=== PATIENT | female | born 1985 | race Caucasian/White ===

== ENCOUNTER 2017-12-02 12:11 | Emergency (ER) | payer MEDICAID ==
[~2017-12-02] VITALS: Ht 167.6 cm; Wt 59.0 kg
[2017-12-02] MEDS ORDERED: IBUPROFEN 600 MG TABLET PO ONE ×2 (12:46→13:00)
[2017-12-02 12:56] LABS: BASOPHILS % (AUTO) 0.3 % (0.0-2.0); EOSINOPHILS % (AUTO) 0.9 % (0.0-6.0); HEMATOCRIT 44 % (33-45); HEMOGLOBIN 14.9 g/dL (11.5-14.8); LYMPHOCYTES # (AUTO) 0.9 /CMM (0.8-4.8); LYMPHOCYTES % (AUTO) 9.9 % (20.0-44.0); MEAN CORPUSCULAR HGB CONC 34 g/dl (31.0-36.0); MEAN CORPUSCULAR VOLUME 95 fL (82-100); MONOCYTES # (AUTO) 0.6 /CMM (0.1-1.30); MONOCYTES % (AUTO) 6.4 % (2.0-12.0); NEUTROPHILS # (AUTO) 7.4 /CMM (1.8-8.9); NEUTROPHILS % (AUTO) 82.5 % (43.0-81.0); PLATELET COUNT (AUTO) 339 /CMM (150-450); RDW COEFFICIENT OF VARIATION 13.2 (11.5-15.0)
[2017-12-02 13:07] LABS: CALCIUM, SERUM 9.1 mg/dL (8.5-10.1); CREATININE 0.9 mg/dL (0.6-1.3); POTASSIUM 4.4 mmol/L (3.5-5.1)
[2017-12-02 13:13] LABS: ALBUMIN 3.6 g/dL (3.4-5.0); BILIRUBIN,DIRECT 0.1 mg/dL (0.0-0.2); BILIRUBIN,TOTAL 0.3 mg/dL (0.2-1.0); TOTAL PROTEIN, SERUM 7.2 g/dL (6.4-8.2)
[2017-12-02 13:31] LABS: APPEARANCE,URINE Cloudy (CLEAR); BILIRUBIN,URINE Negative (NEGATIVE); BLOOD, URINE Moderate Ery/uL (NEGATIVE); COLOR,URINE Yellow (YELLOW); KETONES,URINE Negative (NEGATIVE); LEUKOCYTE ESTERASE ,URINE Trace (NEGATIVE); NITRITE, URINE Negative (NEGATIVE); PROTEIN,URINE Negative (NEGATIVE); UGLUCOSE Negative (NEGATIVE); UROBILINOGEN,URINE 0.2 EU/dL (0.2)
[2017-12-02 13:38] LABS: BACTERIA,URINE 2+ /HPF (None Seen); SQUAMOUS EPITHELIAL CELL,UR Moderate /HPF (None Seen)
[2017-12-02 14:28] LABS: INR 0.89 (0.87-1.13)
--- NOTE | 2017-12-02 14:43 | NUR ---
Patient discharged to home in stable condition. Written and verbal after care instructions given. Patient verbalizes understanding of instruction.
--- NOTE | 2017-12-02 14:43 | NUR ---
IV removed. Catheter intact and site benign. Pressure and 4x4 applied to site. No bleeding noted.
[2017-12-02 14:45] VITALS: BP 115/71
== END 2017-12-02 14:46 | disposition home or self-care (01) ==
LOC: ER 12:13
DX: B34.9 Viral infection, unspecified (principal); R61 Generalized hyperhidrosis; R79.1 Abnormal coagulation profile; R82.99 Other abnormal findings in urine
CPT/HCPCS: 36415; 71045-TC; 80048-TC; 80076-TC; 81000-TC; 84703-TC; 85025-TC; 85378-TC; 85730-TC; 87086-TC; A4606; Z7610